=== PATIENT | male | born 1960 | race Caucasian/White ===

== ENCOUNTER 2018-01-09 21:19 | Emergency (ER) | payer OTHER ==
[2018-01-09 21:46] VITALS: BP 119/82
--- NOTE | 2018-01-09 21:51 | UC ---
Skin Complaint HPI - HPI Summary HPI Summary: 57 yo male presents with multiple complaints. 1) Sore and scratchy throat for the last 3-4 weeks intermittent 2) Lymph nodes swollen at left and right neck 3) Tender scalp to touch with b/l eye soreness and generalized headache for 2 weeks constant He has been seen for these symptoms twice by his PCP in the last month and - per pt - lyme and erlichiosis were negative. Was treated with keflex for a ? infection with no relief. Has been taking ibuprofen with mild relief of headache , but had no relief with caffeine or Excedrin. No hx of migraines. Denies fever, chills, SOB, chest pain, abdominal pain, n/v/d/c, joint pain, dysuria. - History of Current Complaint Chief Complaint: UCGeneralIllness Stated Complaint: HEADACHE, THROAT, EYE PAIN Hx Obtained From: Patient Onset/Duration: Gradual Onset Onset Severity: Moderate Current Severity: Moderate Pain Intensity: 5 Pain Scale Used: 0-10 Numeric - Allergy/Home Medications Allergies/Adverse Reactions: Allergies Allergy/AdvReac Type Severity Reaction Status Date / Time No Known Allergies Allergy Verified 01/09/18 21:46 Home Medications: Home Medications NK [No Home Medications Reported] 01/09/18 [History Confirmed 01/09/18] Review of Systems Constitutional: Negative Skin: Negative Eyes: Other - Pain ENT: Sore Throat Respiratory: Negative Cardiovascular: Negative Gastrointestinal: Negative Genitourinary: Negative Motor: Negative Neurovascular: Negative Musculoskeletal: Negative Neurological: Headache Psychological: Negative All Other Systems Reviewed And Are Negative: Yes PMH/Surg Hx/FS Hx/Imm Hx - Additional Past Medical History Additional PMH: None Previously Healthy: Yes - Surgical History Surgical History: None - Family History Known Family History: Positive: None - Social History Occupation: Employed Full-time Lives: With Family Alcohol Use: Weekly Substance Use Type: None Smoking Status (MU): Never Smoked Tobacco Physical Exam - Summary Physical Exam Summary: GENERAL: NAD. WDWN. No pain distress. SKIN: No rashes, sores, ulcers, masses, lesions. HEENT: Head: AT/NC Eyes: PERRLA. EOM intact. Conjunctiva clear without inflammation or discharge. Ears: Hearing grossly normal. TMs intact, no bulging, erythema, or edema. Nose: Nasal mucosa pink and moist. NTTP maxillary and frontal sinus. Throat: Posterior oropharynx without exudates, erythema, or tonsillar enlargement. Uvula midline. NECK: Supple. Nontender. Mild shotty LAD b/l cervical and clavicular. CHEST: CTAB. No r/r/w. No accessory muscle use. Breathing comfortably and in no distress. CV: RRR. Without m/r/g. Pulses intact. Brisk cap refill. ABDOMEN: Soft. NTTP. No distention or guarding., No organomegaly. No CVA tenderness. Bowel sounds present MSK: FROM in B/L UEs and LEs with symmetric strength. NEURO: A&Ox3. 3 word recall, remote, recent memory, ability to follow 2-step directions, and attention intact. CN II XII grossly intact. Tjrxli-lj-[id number] are intact. Gait with normal base. Romberg: maintains balance, no pronator drift. Normal speech. No facial drooping. PSYCH: Age appropriate behavior. Triage Information Reviewed: Yes Vital Signs: Initial Vital Signs Temp 99.4 F 01/09/18 21:37 Pulse 94 01/09/18 21:37 Resp 15 01/09/18 21:37 BP 119/82 01/09/18 21:37 Pulse Ox 98 01/09/18 21:37 Course/Dx - Course Course Of Treatment: I am unsure the cause of his symptoms. He is afebrile and appears nontoxic. These symptoms seem chronic in nature. Notified him that we have no ability for labwork or imaging at urgent care and I advised him to f/u with his PCP or go to the ED if his symptoms worsen. - Diagnoses Provider Diagnoses: Headache Discharge - Sign-Out/Discharge Documenting (check all that apply): Discharge/Admit/Transfer - Discharge Plan Condition: Stable Disposition: HOME Patient Education Materials: Acute Headache (DC) Referrals: No Primary Care Phys,NOPCP [Primary Care Provider] - Additional Instructions: If you develop a fever, shortness of breath, chest pain, new or worsening symptoms - please call your PCP or go to the ED. 1) Please schedule a follow up with your Primary Physician - Billing Disposition and Condition Condition: STABLE Disposition: Home
== END 2018-01-09 22:13 | disposition home or self-care (01) ==
LOC: UCEAST 21:19
DX: R51 Headache (principal); J02.9 Acute pharyngitis, unspecified; R59.0 Localized enlarged lymph nodes
CPT/HCPCS: 99201; G0463

== ENCOUNTER 2018-01-09 22:33 | Emergency (ER) | payer OTHER ==
[2018-01-10] MEDS ORDERED: NS 0.9% 1000 ML* 1,000 ML IV ONE (00:38)
[2018-01-10] MEDS ORDERED: diPHENhydraMINE IV* 50 MG/ML 1 ml VIAL (BENADRYL) SLOW PUSH ONE (00:39)
[2018-01-10] MEDS ORDERED: Ketorolac INJ* 30 MG/ML 1 ML VIAL IV PUSH ONE (00:39)
[2018-01-10] MEDS ORDERED: Metoclopramide IV* 5 MG/ML 2 ML VIAL IV SLOW PU ONE (00:39)
[2018-01-10 01:19] LABS: ABS Basophils 0 10^3/ul (0-0.2); ABS Eosinophils 0.3 10^3/ul (0-0.6); ABS Lymphocytes 1.4 10^3/ul (1.0-4.8); ABS Monocytes 0.6 10^3/ul (0-0.8); ABS Nucleated RBC 0.1 10^3/ul; Eosinophil % 4.7 % (0-6); Hematocrit 42 % (42-52); Hemoglobin 14.7 g/dl (14.0-18.0); Lymphocyte % 18.8 % (25-47); Mean Corpuscular HGB Conc 35 g/dl (31-36); Mean Corpuscular Hemoglobin 30 pg (27-31); Mean Corpuscular Volume 84 fL (80-94); Mean Platelet Volume 8.6 um3 (7.4-10.4); Nucleated Red Blood Cells % 0.7; Platelet Count 162 10^3/ul (150-450); Red Blood Count 4.96 10^6/ul (4.00-5.40); Red Cell Distribution Width 13 % (10.5-15); White Blood Count 7.3 10^3/ul (3.5-10.8)
[2018-01-10 01:30] LABS: EGFR Non-African American 79.8 (>60)
[2018-01-10 02:42] VITALS: BP 123/74
--- NOTE | 2018-01-10 03:58 | ED ---
Rohit Rocha Tariq, scribed for Jessika Gallardo MD on 01/10/18 at 0027 . Headache - HPI Summary HPI Summary: A 57 y/o male presents to ED c/o headache. According to the patient, his headache pain increases throughout the day as it starts in morning. Currently the headache is still present with a severity of 6/10. The patient noted that since Wednesday (4 days ago), he feels very sensitive on the scalp of his head, sensitive to the touch. Additional symptoms include sore throat and his eyes hurt. Patient denies nausea or any light sensitivity. About a month ago, the patient was seen by his PCP because he had a bug bite that led to him getting swollen lymph nodes and a stiff neck. A Lyme disease test was taken, however it came back negative. On that following weekend, the patient noticed that his swelling did not get worse but noted a burning rash that was like a sunburn. He was prescribed Cephalexin. The medication seemed to correct the neck stiffness, however recently new symptoms appeared bringing him to the ED today. The patient took Advil around 1600. He normally takes two pills in the morning and one during the day every 4 hours, however the medication has not been helping. - History Of Current Complaint Chief Complaint: EDHeadache Stated Complaint: HEADACHE/SORE THROAT Time Seen by Provider: 01/10/18 00:11 Hx Obtained From: Patient Onset/Duration: Sudden Onset, Started days ago - 4 days ago, Still Present, Worse Since - 4 days ago Initially Headache Was: Initial Pain Scale(0-10)= - 7/10 Currently Pain Is: Current Pain Scale(0-10)= - 7/10 Timing: Constant Aggravating Factor: Nothing Allevating Factors: Nothing Associated Signs And Symptoms: Neck Stiffness - Allergies/Home Medications Allergies/Adverse Reactions: Allergies Allergy/AdvReac Type Severity Reaction Status Date / Time No Known Allergies Allergy Verified 01/09/18 21:46 PMH/Surg Hx/FS Hx/Imm Hx Cardiovascular History: Denies: Hx Hypertension Respiratory History: Denies: Hx Asthma, Hx Chronic Obstructive Pulmonary Disease (COPD) GI History: Denies: Hx Ulcer Infectious Disease History: No Infectious Disease History: Denies: Hx Human Immunodeficiency Virus (HIV), Traveled Outside the [place] in Last 30 Days - Family History Known Family History: Negative: Diabetes - Social History Alcohol Use: Weekly Substance Use Type: Reports: None Smoking Status (MU): Never Smoked Tobacco Review of Systems Negative: Fever Eyes: Other - POSITIVE: eye pain Positive: Other - NEGATIVE: Sensitivity to light Positive: Sore Throat All Other Systems Reviewed And Are Negative: Yes Physical Exam - Summary Physical Exam Summary: VITAL SIGNS: Reviewed. GENERAL: Patient is a well-developed and nourished MALE who is lying comfortable in the stretcher. Patient is not in any acute respiratory distress. Exam is unremarkable. HEAD AND FACE: No signs of trauma. No ecchymosis, hematomas or skull depressions. No sinus tenderness. EYES: PERRLA, EOMI x 2, No injected conjunctiva, no nystagmus. EARS: Hearing grossly intact. Ear canals and tympanic membranes are within normal limits. MOUTH: Oropharynx within normal limits. NECK: Supple, trachea is midline, no adenopathy, no JVD, no carotid bruit, no c- spine tenderness, neck with full ROM. CHEST: Symmetric, no tenderness at palpation LUNGS: Clear to auscultation bilaterally. No wheezing or crackles. CVS: Regular rate and rhythm, S1 and S2 present, no murmurs or gallops appreciated. ABDOMEN: Soft, non-tender. No signs of distention. No rebound no guarding, and no masses palpated. Bowel sounds are normal. EXTREMITIES: FROM in all major joints, no edema, no cyanosis or clubbing. NEURO: Alert and oriented x 3. No acute neurological deficits. Speech is normal and follows commands. SKIN: Dry and warm Triage Information Reviewed: Yes Vital Signs On Initial Exam: Initial Vitals Temp Pulse Resp BP Pulse Ox 98.9 F 80 20 136/89 98 01/09/18 22:46 01/09/18 22:46 01/09/18 22:46 01/09/18 22:46 01/09/18 22:46 Vital Signs Reviewed: Yes Diagnostics - Vital Signs Vital Signs Temp Pulse Resp BP Pulse Ox 01/09/18 22:46 98.9 F 80 20 136/89 98 - Laboratory Result Diagrams: 01/10/18 01:04 01/10/18 01:04 Lab Statement: Any lab studies that have been ordered have been reviewed, and results considered in the medical decision making process. Re-Evaluation - Re-Evaluation [id number] Comment: DISCUSSED DISCHARGE WITH PATIENT. Headache Course/Dx - Course Course Of Treatment: A 57 y/o male presents to ED c/o headache. According to the patient, his headache pain increases throughout the day as it starts in morning. Currently the headache is still present with a severity of 6/10. The patient noted that since Wednesday (4 days ago), he feels very sensitive on the scalp of his head, sensitive to the touch. Additional symptoms include sore throat and his eyes hurt. Patient denies nausea or any light sensitivity. No radiology or scans were done. In the ED course, the patient was given Toradol, Benadryl, Reglan and Sodium Chloride. Patient will be discharged with a diagnosis of headache. Patient is to follow up with PCP in 1-2 days. Pt is agreeable with this plan. - Diagnoses Provider Diagnoses: Headache Discharge - Sign-Out/Discharge Documenting (check all that apply): Discharge/Admit/Transfer - DISCHARGE - Discharge Plan Condition: Stable Disposition: HOME Patient Education Materials: Cluster Headache (ED) Referrals: Non Staff,Doctor [Primary Care Provider] - 2 Days (FOLLOW UP WITH PRIMARY CARE PHYSICIAN IN 1-2 DAYS.) [facility] [place] [facility] [Outside] Additional Instructions: RETURN TO THE EMERGENCY DEPARTMENT FOR CHANGING OR WORSENING SYMPTOMS The documentation as recorded by the Rohit jhaveri Tariq accurately reflects the service I personally performed and the decisions made by me, Jessika Gallardo MD.
== END 2018-01-10 02:41 | disposition home or self-care (01) ==
LOC: ED 22:33
DX: R51 Headache (principal); J02.9 Acute pharyngitis, unspecified
CPT/HCPCS: 36415; 80053; 82550; 85025; 96374; 96375; 99281; J1200; J1885; J2765